=== PATIENT | male | born 1975 | race Caucasian/White ===

== ENCOUNTER 2017-11-01 21:56 | Emergency (ER) | payer BC ==
[2017-11-01 22:21] VITALS: TEMP 98.7
[2017-11-02] MEDS ORDERED: HYDROcodone/APAP 5-325MG 1 EACH TAB PO STA (00:26)
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
--- NOTE | 2017-11-02 01:08 | XR ---
EXAMINATION TYPE: XR ribs RT w pa chest xray DATE OF EXAM: 11/02/2017 COMPARISON: NONE HISTORY: Rib pain TECHNIQUE: 5 views FINDINGS: Heart and mediastinum are normal. Lungs are clear. There is no sign of pleural effusion or pneumothorax. There are nondisplaced fractures of the right anterior is seventh and sixth ribs. The r emainder of the exam is unremarkable. IMPRESSION: Normal heart and lungs. Nondisplaced right rib fractures.
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
[2017-11-02 03:09] VITALS: BP 123/78; PULSE 98; RESP 18
== END 2017-11-02 03:08 | disposition home or self-care (01) ==
LOC: EC 21:56
DX: S22.41XA Multiple fractures of ribs, right side, initial encounter for closed fracture (principal); S20.211A Contusion of right front wall of thorax, initial encounter; S00.01XA Abrasion of scalp, initial encounter; S00.81XA Abrasion of other part of head, initial encounter; S10.91XA Abrasion of unspecified part of neck, initial encounter; S80.211A Abrasion, right knee, initial encounter; S50.312A Abrasion of left elbow, initial encounter; F17.200 Nicotine dependence, unspecified, uncomplicated; Y04.2XXA Assault by strike against or bumped into by another person, initial encounter
CPT/HCPCS: 70450; 72125; 99284

== ENCOUNTER → 2024-02-18 | Outpatient (CLI) | payer BC ==
--- NOTE | 2024-02-18 20:20 | MR ---
EXAMINATION TYPE: MR cervical spine wo con DATE OF EXAM: 02/18/2024 COMPARISON: None HISTORY: Both shoulders have pain more in left, Numbness/tingling in both arms/fingers x3-6 weeks TECHNIQUE: Multiplanar, multisequence images of the cervical spine were acquired without contrast. Findings: The craniovertebral junction relationship is a prevertebral soft tissues are normal. The cervical vertebral segments are normal in height and alignment and there is no fracture or sublux ation. There is loss of the normal cervical lordosis. There is mild disc space narrowing, circumferential disc bulge and spondylosis at the C5-6 and C6-7 l evels. The C2-3, C3-4 and C4-5 disc spaces are well preserved. There is no cervical disc herniation. Secondary to mild circumferential disc bulge and mild posterior hypertrophic spurring and there is mi ld cervical stenosis at the C5-6 level. The cervical cord is normal in size and signal intensity. Secondary to mild degeneration of the uncovertebral joints, there is mild neural foraminal stenosis a t the C5-6 level and moderate to severe at the C6-7 level on the left. IMPRESSION: 1. Mild degenerative disc disease at the C5-6 and C6-7 levels without cervical disc herniation. 2. Mild cervical stenosis at C5-6. 3. Normal cervical cord. 4. Mild neural foraminal stenosis at C5-6 bilaterally and moderate to severe neural foraminal stenosi s at C6-7 on the left
== END | disposition home or self-care (01) ==
LOC: RADMRIMAIN 19:30
PROVIDERS: ATTEND Orthopaedic Surgery
DX: M48.02 Spinal stenosis, cervical region (principal); M50.322 Other cervical disc degeneration at C5-C6 level
CPT/HCPCS: 72141

== ENCOUNTER → 2024-04-02 | Outpatient (CLI) | payer BC ==
--- NOTE | 2024-04-30 20:03 | MR ---
Patient: Damon House M Ordering Physician: Unknown, Unknown ID: [id number] Phone, Pager: Phone: N /A Pager: N/A : [phone] Age/Gender: 48Y, M Primary Location: N/A Procedure: MR shoulder LT Study Date: 04/02/2024 6:38:37 PM Order #: N/A EXAMINATION TYPE: MR shoulder LT wo con DATE OF EXAM: 04/02/2024 COMPARISON: NONE HISTORY: Left shoulder pain, left scapula lipoma. TECHNIQUE: Multiplanar, multisequence imaging of the left shoulder is performed without contrast. FINDINGS: Rotator Cuff: Intact infraspinatus tendon. Some increased signal with adjacent fluid in the supraspin atus tendon. Intact subscapularis tendon. Rotator cuff muscle bulk preserved. Heterogeneous increased T2 signal or edema throughout the infraspinatus and teres minor muscles. Spinal glenoid notch septat ed thin-walled cyst or adjacent cysts measuring in total 3.1 cm craniocaudal diameter sagittal image 26 x 2.1 cm AP diameter by 2.6 cm transversely axial image 16. Acromioclavicular Joint: Mild to moderate narrowing greatest posteriorly with mild to moderate capsul ar hypertrophy and spurring. Glenohumeral Joint: Some narrowing is present. Tiny spur inferior medial humeral head. No significant effusion. Labrum: The labrum appears grossly intact given limitation of non-arthrogram study. Biceps Tendon: The long head of biceps is in normal location within bicipital groove. Bone marrow signal: No focal abnormal marrow signal is appreciated. Other: No additional significant abnormality is appreciated. 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 Other findings as noted above.
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
== END | disposition home or self-care (01) ==
LOC: RADMRIMAIN 19:15
PROVIDERS: ATTEND Orthopaedic Surgery
DX: M25.512 Pain in left shoulder (principal); D17.22 Benign lipomatous neoplasm of skin and subcutaneous tissue of left arm; R60.9 Edema, unspecified
CPT/HCPCS: 70543; 73221; A9585